=== PATIENT | female | born 1990 | race Caucasian/White ===

== ENCOUNTER 2017-04-07 14:58 | Inpatient (IN) | payer MEDICAID, OTHER ==
[~2017-04-07] VITALS: Ht 165.1 cm; Wt 56.7 kg
[2017-04-07] MEDS ORDERED: DIATR MEGLU/DIATRIZOATE SOLN 120ML ONE (15:03)
[2017-04-07] MEDS ORDERED: SODIUM CHLORIDE 0.9% 1,000 ML IV ONE (16:30)
[2017-04-07 17:00] LABS: CHLORIDE 106 mEq/L (98-107)
[2017-04-07 17:01] LABS: INR 1.5; PROTHROMBIN TIME 15.4 sec (9.4-11.6)
[2017-04-07 17:05] LABS: CARBON DIOXIDE 31 mEq/L (21-32)
[2017-04-07 17:41] LABS: BASOPHILS % 0.8 % (0.0-2.0); EOSINOPHILS % 2.2 % (0.0-5.0); HEMATOCRIT. 31.4 % (36.0-48.0); HEMOGLOBIN. 10.8 g/dL (12.0-16.0); LYMPHOCYTES % 37.7 % (20.0-50.0); MEAN CORPUSCULAR VOLUME 95.9 fL (81.0-99.0); MEAN PLATELET VOLUME 9.5 fl (7.4-10.4); MONOCYTES % 9.5 % (2.0-8.0); NEUTROPHILS % 49.8 % (40.0-76.0); RED BLOOD CELL COUNT 3.28 mill/uL (4.2-5.4); RED CELL DISTRIBUTION WIDTH 16.6 % (11.6-14.6)
[2017-04-07 17:50] LABS: PLATELET 44 x1000/uL (130-400)
[2017-04-07 18:40] LABS: CLARITY URINE CLEAR (CLEAR); COLOR URINE YELLOW (YELLOW); GLUCOSE URINE NEGATIVE (NEGATIVE); KETONES URINE NEGATIVE (NEGATIVE); LEUKOCYTE ESTERASE URINE NEGATIVE (NEGATIVE); NITRITE URINE NEGATIVE (NEGATIVE); OCCULT BLOOD URINE NEGATIVE (NEGATIVE); PROTEIN URINE NEGATIVE (NEGATIVE); SPECIFIC GRAVITY URINE 1.008 (1.005-1.030)
[2017-04-07] MEDS ORDERED: NITROGLYCERIN 0.4MG TABLET SL SL PRN (21:45)
[2017-04-07] MEDS ORDERED: NA PHOS,M-B/NA PHOS,DI-BA ENEMA 118ML PR PRN (22:00)
[2017-04-07] MEDS ORDERED: MAGNESIUM/ALUMINUM HYDROXIDE/SIMETHICONE 30ML UDC PO PRN (22:00)
[2017-04-07] MEDS ORDERED: ONDANSETRON HCL 4MG/2ML VIAL IV PRN (22:00)
[2017-04-07] MEDS ORDERED: LORAZEPAM 2MG/ML CPJ IV PRN (22:00)
[2017-04-07] MEDS ORDERED: ACETAMINOPHEN 325MG TABLET PO PRN (22:00)
[2017-04-07] MEDS ORDERED: CLONIDINE 0.1MG TABLET PO PRN (22:00)
[2017-04-07] MEDS ORDERED: DIPHENHYDRAMINE 50MG/ML VIAL IV PRN (22:00)
[2017-04-07 22:22] LABS: C REACTIVE PROTEIN QUANT 0.8 mg/L (0.0-3.0)
[2017-04-07] MEDS ORDERED: PHYTONADIONE 10MG/ML AMP SUBCUT SCH (22:45)
[2017-04-07 22:49] LABS: VITAMIN B12 SERUM 1709 pg/mL (211-911)
[2017-04-07 22:57] LABS: FOLIC ACID (FOLATE) SERUM > 20.00 ng/mL (>5.38)
[2017-04-07 23:03] LABS: HEPATITIS B SURFACE ANTIGEN NEGATIVE
[2017-04-07] MEDS: TRAMADOL 50MG TABLET PO PRN (23:09)
[2017-04-07 23:32] LABS: HEPATITIS B CORE AB IGM NEGATIVE
[2017-04-07 23:33] LABS: HEPATITIS A AB IGM NEGATIVE (NEGATIVE)
[2017-04-07] MEDS ORDERED: ZOLPIDEM TARTRATE 5MG TABLET PO PRN (23:57)
[2017-04-08] VITALS (12 sets, daily range): BP systolic 99–122; BP diastolic 46–71
[2017-04-08] MEDS ORDERED: P20 PO (05:28)
[2017-04-08] MEDS ORDERED: OMEP20TA2 PO (05:32)
[2017-04-08] MEDS ORDERED: TRAM200T31 PO (05:32)
[2017-04-08] MEDS: TRAMADOL 50MG TABLET PO PRN ×2 (05:50→23:16)
[2017-04-08 09:10] LABS: *AMPHETAMINES SCREEN URINE NEGATIVE (NEGATIVE); *BARBITURATES SCREEN URINE NEGATIVE (NEGATIVE); *COCAINE SCREEN URINE NEGATIVE (NEGATIVE); METHADONE URINE SCREEN NEGATIVE (NEGATIVE); OPIATES URINE SCREEN NEGATIVE (NEGATIVE); PHENCYCLIDINE URINE SCREEN NEGATIVE (NEGATIVE)
[2017-04-08 09:16] LABS: *BENZODIAZEPINES SCREEN URINE PRESUMTIVE POSITIVE (NEGATIVE)
[2017-04-08 09:17] LABS: CANNABINOID URINE SCREEN PRESUMTIVE POSITIVE (NEGATIVE)
[2017-04-08 10:56] LABS: BASOPHILS % 0.6 % (0.0-2.0); EOSINOPHILS % 2.2 % (0.0-5.0); HEMATOCRIT. 31.2 % (36.0-48.0); HEMOGLOBIN. 10.9 g/dL (12.0-16.0); INR 1.4; LYMPHOCYTES % 26.7 % (20.0-50.0); MEAN CORPUSCULAR HEMOGLOBIN 33.2 pg (28.0-32.0); MEAN CORPUSCULAR VOLUME 95.2 fL (81.0-99.0); MEAN PLATELET VOLUME 9.4 fl (7.4-10.4); NEUTROPHILS % 63.5 % (40.0-76.0); PARTIAL THROMBOPLASTIN TIME 28.9 sec (23.4-31.0); PROTHROMBIN TIME 14.8 sec (9.4-11.6); RED BLOOD CELL COUNT 3.27 mill/uL (4.2-5.4); RED CELL DISTRIBUTION WIDTH 16.3 % (11.6-14.6)
[2017-04-08 11:09] LABS: PLATELET 43 x1000/uL (130-400)
[2017-04-08 11:20] LABS: CARBON DIOXIDE 25 mEq/L (21-32); CHLORIDE 106 mEq/L (98-107)
[2017-04-09] VITALS: BP 101/61
[2017-04-09 04:00] VITALS: BP 99/53
[2017-04-09 09:32] LABS: HEMATOCRIT 29.9 % (36.0-48.0); HEMOGLOBIN 10.4 g/dL (12.0-16.0); MEAN CORPUSCULAR HEMOGLOBIN 33.2 pg (28.0-32.0); RED BLOOD CELL COUNT 3.15 mill/uL (4.2-5.4)
[2017-04-09 10:29] LABS: PLATELET 44 x1000/uL (130-400)
[2017-04-09 10:32] VITALS: BP 94/54
[2017-04-09 10:33] LABS: PLATELET ESTIMATE MARKEDLY DECREASED
== END 2017-04-09 10:54 | disposition home or self-care (01) | DRG 813 ==
LOC: ER 15:50 → ENRESERV 21:56 → EDBEDREQ 22:23 → EDBEDREQTM 22:23 → EDBEDREQ 22:51 → EDBEDREQTM 22:51 → 8WST 22:51
PROVIDERS: ADMIT Internal Medicine; ATTEND Internal Medicine
DX: K91.840 Postprocedural hemorrhage of a digestive system organ or structure following a digestive system procedure (principal); D61.818 Other pancytopenia; I85.00 Esophageal varices without bleeding; E44.0 Moderate protein-calorie malnutrition; K76.6 Portal hypertension; D69.59 Other secondary thrombocytopenia; K51.911 Ulcerative colitis, unspecified with rectal bleeding; K74.60 Unspecified cirrhosis of liver; F32.9 Major depressive disorder, single episode, unspecified; K75.4 Autoimmune hepatitis; K64.8 Other hemorrhoids; K62.5 Hemorrhage of anus and rectum; F12.90 Cannabis use, unspecified, uncomplicated; G47.00 Insomnia, unspecified; K76.9 Liver disease, unspecified; D63.8 Anemia in other chronic diseases classified elsewhere; Z68.20 Body mass index [BMI] 20.0-20.9, adult; Z88.8 Allergy status to other drugs, medicaments and biological substances
CPT/HCPCS: 36415; 71250; 74176; 76705; 80053; 80076; 80305; 81003; 81025; 82607; 82746; 83036; 83540; 83550; 83690; 85025; 85027; 85610; 85651; 85730; 86140; 86705; 86709; 86803; 87186; 87340; 96372; 99285; J3430; J7030; Q9963

== ENCOUNTER 2017-09-21 15:12 | Emergency (ER) | payer MEDICAID, MEDICARE ==
[~2017-09-21] VITALS: Ht 165.1 cm; Wt 52.0 kg
[~2017-09-21 15:12] MED LIST: OMEP20TA2 PO; P20 PO; TRAM200T31 PO
[2017-09-21] MEDS ORDERED: SODIUM CHLORIDE 0.9% 1,000 ML IV ONE (20:07)
[2017-09-21 20:50] LABS: BASOPHILS % 0.3 % (0.0-2.0); EOSINOPHILS % 3.4 % (0.0-5.0); HEMATOCRIT. 33.9 % (36.0-48.0); HEMOGLOBIN. 11.5 g/dL (12.0-16.0); LYMPHOCYTES % 20.2 % (20.0-50.0); MEAN CORPUSCULAR VOLUME 96.9 fL (81.0-99.0); MEAN PLATELET VOLUME 10.3 fl (7.4-10.4); MONOCYTES % 7.8 % (2.0-8.0); NEUTROPHILS % 68.3 % (40.0-76.0); PLATELET 64 x1000/uL (130-400)
[2017-09-21 20:55] LABS: INR 1.5; PROTHROMBIN TIME 15.6 sec (9.4-11.6)
[2017-09-21 20:57] LABS: CHLORIDE 103 mEq/L (98-107)
[2017-09-21] MEDS ORDERED: FAMOTIDINE 20MG/2ML VIAL IV ONE (21:00)
[2017-09-21] MEDS ORDERED: ONDANSETRON HCL 4MG/2ML VIAL IV ONE (21:00)
[2017-09-21 21:16] LABS: CLARITY URINE CLOUDY (CLEAR); COLOR URINE ORANGE (YELLOW); KETONES URINE 1+ (NEGATIVE); LEUKOCYTE ESTERASE URINE 1+ (NEGATIVE); NITRITE URINE POSITIVE (NEGATIVE); OCCULT BLOOD URINE NEGATIVE (NEGATIVE); PH URINE 6.5 (4.5-8.0); PROTEIN URINE TRACE (NEGATIVE)
[2017-09-21] MEDS ORDERED: BENZONATATE 100MG CAPSULE PO ONE (21:45)
[2017-09-21] MEDS ORDERED: METOCLOPRAMIDE HCL 10MG/2ML VIAL IV ONE (21:45)
[2017-09-21] MEDS ORDERED: IPRATROPIUM/ALBUTEROL 0.5-3(2.5)MG/3ML NEB HHN ONE (21:45)
[2017-09-21] MEDS ORDERED: KETOROLAC 30MG/ML VIAL IV ONE (21:45)
[2017-09-22 00:57] VITALS: BP 111/66
== END 2017-09-22 01:08 | disposition home or self-care (01) ==
LOC: ER 17:17
DX: D69.6 Thrombocytopenia, unspecified (principal); D50.9 Iron deficiency anemia, unspecified; N39.0 Urinary tract infection, site not specified; R79.89 Other specified abnormal findings of blood chemistry; R04.2 Hemoptysis; J02.8 Acute pharyngitis due to other specified organisms; B97.89 Other viral agents as the cause of diseases classified elsewhere; F32.9 Major depressive disorder, single episode, unspecified; F17.200 Nicotine dependence, unspecified, uncomplicated; F12.10 Cannabis abuse, uncomplicated; Z88.6 Allergy status to analgesic agent
CPT/HCPCS: 36415; 71045; 80053; 81003; 81025; 83690; 85025; 85610; 87086; 94640; 96360; 96361; 99285; J7030; J7620; Z7610

== ENCOUNTER 2017-11-15 18:19 | Emergency (ER) | payer MEDICAID, MEDICARE ==
[~2017-11-15] VITALS: Ht 165.1 cm; Wt 55.0 kg
[2017-11-15] MEDS ORDERED: SODIUM CHLORIDE 0.9% 1,000 ML IV ONE (22:35)
[2017-11-15] MEDS ORDERED: KETOROLAC 30MG/ML VIAL IV STA (22:35)
[2017-11-15] MEDS ORDERED: CLINDAMYCIN 600 MG in DEXTROSE 5% WATER 50 ML IV ONE (22:45)
[2017-11-15] MEDS ORDERED: METHYLPREDNISOLONE SOD SUCC 125 MG/2 ML VIAL IV ONE (22:45)
[2017-11-15] MEDS ORDERED: CLINDAMYCIN 600MG PREMIX 50 ML IV SCH ×2 (23:22→23:23)
[2017-11-16] MEDS ORDERED: TRAMADOL 50MG TABLET PO ONE (01:15)
[2017-11-16 02:00] VITALS: BP 117/77
== END 2017-11-16 02:09 | disposition home or self-care (01) ==
LOC: ER 22:41
DX: K04.7 Periapical abscess without sinus (principal); L03.211 Cellulitis of face; F17.200 Nicotine dependence, unspecified, uncomplicated; F32.9 Major depressive disorder, single episode, unspecified; K75.4 Autoimmune hepatitis
CPT/HCPCS: 96361; 96365; 96366; 96375; 99285; J1885; J2930; J3490; J7030; Z7610; J7060

== ENCOUNTER 2018-07-03 22:18 | Emergency (ER) | payer MEDICAID, MEDICARE ==
[~2018-07-03] VITALS: Ht 165.1 cm; Wt 50.0 kg
[2018-07-04] MEDS ORDERED: ONDANSETRON HCL 4MG/2ML INJ IV STA (01:51)
[2018-07-04] MEDS ORDERED: MORPHINE SULFATE 4 MG/ML CPJ (NOT FOR IM USE) IV STA (01:51)
[2018-07-04] MEDS ORDERED: SODIUM CHLORIDE 0.9% 1,000 ML IV ONE (01:51)
[2018-07-04] MEDS ORDERED: MORPHINE SULFATE 10 MG/ML CPJ IV NR (02:15)
[2018-07-04 02:36] LABS: CLARITY URINE CLEAR (CLEAR); COLOR URINE DARK YELLOW (YELLOW); KETONES URINE 1+ (NEGATIVE); LEUKOCYTE ESTERASE URINE NEGATIVE (NEGATIVE); NITRITE URINE NEGATIVE (NEGATIVE); OCCULT BLOOD URINE NEGATIVE (NEGATIVE); PH URINE 6.5 (4.5-8.0); PROTEIN URINE NEGATIVE (NEGATIVE); SPECIFIC GRAVITY URINE 1.019 (1.005-1.030)
[2018-07-04 02:38] LABS: BASOPHILS % 0.7 % (0.0-2.0); EOSINOPHILS % 3.4 % (0.0-5.0); HEMATOCRIT. 33.4 % (36.0-48.0); HEMOGLOBIN. 11.6 g/dL (12.0-16.0); MEAN CORPUSCULAR HEMOGLOBIN 33.7 pg (28.0-32.0); MEAN CORPUSCULAR VOLUME 97.2 fL (81.0-99.0); MEAN PLATELET VOLUME 10.7 fl (7.4-10.4); MONOCYTES % 7.6 % (2.0-8.0); NEUTROPHILS % 52.3 % (40.0-76.0); RED BLOOD CELL COUNT 3.44 mill/uL (4.2-5.4); RED CELL DISTRIBUTION WIDTH 17.3 % (11.6-14.6)
[2018-07-04 02:46] LABS: CHLORIDE 106 mEq/L (98-107)
[2018-07-04 02:53] LABS: PLATELET 48 x1000/uL (130-400)
[2018-07-04 07:04] VITALS: BP 112/65
== END 2018-07-04 07:05 | disposition home or self-care (01) ==
LOC: ER 23:00
DX: R10.11 Right upper quadrant pain (principal); K74.60 Unspecified cirrhosis of liver; K76.6 Portal hypertension; D69.6 Thrombocytopenia, unspecified
CPT/HCPCS: 36415; 74176; 80053; 81003; 81025; 83690; 85025; 96374; 96375; 99284; J2270; J2405; J7030

== ENCOUNTER 2018-08-25 09:23 | Emergency (ER) | payer MEDICARE ==
[~2018-08-25] VITALS: Ht 165.1 cm; Wt 50.0 kg
[2018-08-25 12:07] VITALS: BP 102/62
== END 2018-08-25 12:07 | disposition home or self-care (01) ==
LOC: ER 09:23
DX: J06.9 Acute upper respiratory infection, unspecified (principal); Z88.6 Allergy status to analgesic agent; Z86.19 Personal history of other infectious and parasitic diseases
CPT/HCPCS: 99281

== ENCOUNTER 2018-12-31 21:41 | Emergency (ER) | payer MEDICARE ==
[~2018-12-31] VITALS: Ht 165.1 cm; Wt 65.3 kg
[2019-01-01] MEDS ORDERED: FUROSEMIDE 40MG/4ML VIAL IVP ONE (00:30)
[2019-01-01] MEDS ORDERED: MORPHINE SULFATE 4 MG/ML CPJ (NOT FOR IM USE) IV ONE (00:30)
[2019-01-01 00:52] LABS: BASOPHILS % 0.6 % (0.0-2.0); EOSINOPHILS % 4.4 % (0.0-5.0); HEMATOCRIT. 32.2 % (36.0-48.0); LYMPHOCYTES % 28.9 % (20.0-50.0); MEAN CORPUSCULAR VOLUME 99.4 fL (81.0-99.0); MEAN PLATELET VOLUME 10.3 fl (7.4-10.4); MONOCYTES % 9.3 % (2.0-8.0); NEUTROPHILS % 56.8 % (40.0-76.0); PLATELET 52 x1000/uL (130-400); RED BLOOD CELL COUNT 3.24 mill/uL (4.2-5.4); RED CELL DISTRIBUTION WIDTH 16.6 % (11.6-14.6)
[2019-01-01 00:58] LABS: CHLORIDE 108 mEq/L (98-107)
[2019-01-01] MEDS ORDERED: HYDROCODONE/ACETAMINOPHEN 10/325MG TABLET PO ONE (05:15)
[2019-01-01] MEDS ORDERED: OXYCODONE HCL 10MG TABLET SR 12HR PO ONE (05:30)
[2019-01-01 05:51] VITALS: BP 107/58
== END 2019-01-01 05:58 | disposition home or self-care (01) ==
LOC: ER 22:47
DX: K75.4 Autoimmune hepatitis (principal); K74.60 Unspecified cirrhosis of liver; R60.0 Localized edema; Z88.6 Allergy status to analgesic agent
CPT/HCPCS: 36415; 80053; 81025; 85025; 96374; 96375; 99283; J1940; J2270; Z7610

== ENCOUNTER 2022-07-03 20:38 | Emergency (ER) | payer MEDICARE ==
[~2022-07-03] VITALS: Ht 165.1 cm; Wt 51.7 kg
[~2022-07-03 20:38] MED LIST changes: -OMEP20TA2 PO; +OMEP20TA23 PO; -TRAM200T31 PO; +[UNRECOGNIZED DRUG - CODE] PO
[2022-07-03 21:34] VITALS: BP 107/65
== END 2022-07-04 00:30 | disposition left against medical advice (07) ==
LOC: ER 20:38
DX: Z53.21 Procedure and treatment not carried out due to patient leaving prior to being seen by health care provider (principal)